=== PATIENT | female | born 1985 | race Caucasian/White ===

== ENCOUNTER 2019-08-28 08:49 | Emergency (ER) | payer OTHER, SELFPAY ==
[2019-08-28 08:57] VITALS: BP 128/84; PULSE 129; RESP 16; TEMP 36.9; O2SAT 100
--- NOTE | 2019-08-28 09:08 | ED.URI ---
HPI - URI/Sore Throat General Chief Complaint: Upper Respiratory Infection Stated Complaint: Sore throat History of Present Illness HPI Narrative: This is 33 year old that has had a sore throat for the past day and she denies taking anything for her symptoms Patient states that here son has strep and she is pretty sure she is positive . Related Data Home Medications Medication Instructions Recorded Confirmed PNV cmb#95-ferrous fumarate-FA 1 tablet PO DAILY 04/26/19 08/28/19 [] Allergies Allergy/AdvReac Type Severity Reaction Status Date / Time No Known Allergies Allergy Unknown Verified 08/28/19 09:11 Review of Systems Review of Systems: Narrative: CONSTITUTIONAL: Denies fever, chills, or sweats. EYES: Denies visual changes, redness, or discharge. ENT: Denies rhinorrhea, congestion,positive sore throat, or otalgia. CARDIOVASCULAR:Denies chest pain, palpitations, or edema. RESPIRATORY: Denies cough or dyspnea. GASTROINTESTINAL: Denies abdominal pain, nausea, vomiting, or diarrhea. GENITOURINARY: Denies dysuria or hematuria. SKIN:[Denies rash or itching. MUSCULOSKELETAL:Denies back pain, joint pain, or myalgia. NEUROLOGIC: Denies headache, numbness, or weakness. 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 Please see nursing chart for further information. There is no relevant family history pertinent to the presenting complaint. Exam Narrative: Exam Narrative: GENERAL:Well-appearing, well-nourished, and in no acute distress. HEAD:Normocephalic, atraumatic. EYES: PERRLA and EOMI. ENT: Nares clear, no rhinorrhea or epistaxis. Mucous membranes moist. Pharyngeal erythema NECK: Supple. CHEST: Clear to auscultation. No respiratory distress. HEART: Regular rate and rhythm. No murmur heard. Normal peripheral pulses. ABDOMEN: Soft, nontender, nondistended, normal active bowel sounds. EXTREMITIES: Normal range of motion. No edema. SKIN: Warm, dry, no rash. NEURO: No focal deficits. Alert and oriented x3. Positive strep Course Vital Signs Vital signs: Vital Signs Temperature 98.4 F 08/28/19 08:57 Pulse Rate 129 H 08/28/19 08:57 Respiratory Rate 16 08/28/19 08:57 Blood Pressure 128/84 08/28/19 08:57 Pulse Oximetry 100 08/28/19 08:57 Temperature 98.4 F 08/28/19 08:57 Pulse Rate 129 H 08/28/19 08:57 Respiratory Rate 16 08/28/19 08:57 Blood Pressure 128/84 08/28/19 08:57 Pulse Oximetry 100 08/28/19 08:57 MDM - URI/Sore Throat Lab Data Labs: Strep Screen Positive Group A Strep *(Reference Range: Negative)* Discharge Plan Discharge Clinical Impression: Strep throat Pharyngitis Qualifiers: Pharyngitis/tonsillitis etiology: unspecified etiology Qualified Code(s): J02.9 - Acute pharyngitis, unspecified Patient Disposition: Home, Self-Care Condition: Stable Instructions: Antibiotic Form, Pharyngitis (ED) Additional Instructions: Change your toothbrush in 2 days You should proceed with take your antibiotics as directed. Salt water gargles may alleviate some of your throat discomfort. Take Tylenol and/or ibuprofen per the package instructions for pain/fever. Go to the ER if your symptoms become worse of if ANY new symptoms develop No information on probiotics Prescriptions: New amoxicillin 500 mg capsule 500 mg PO Q12H 10 Days Qty: 20 RF: 0 No Action PNV cmb#95-ferrous fumarate-FA [] 28 mg iron- 800 mcg Tablet 1 tablet PO DAILY RF: 0 Follow-up/Referrals: PHYSICIAN,O
== END 2019-08-28 09:35 | disposition home or self-care (01) ==
PROVIDERS: Emergency Provider Nurse Practitioner Family
DX: J02.0 Streptococcal pharyngitis (principal); Z87.891 Personal history of nicotine dependence; M41.9 Scoliosis, unspecified
CPT/HCPCS: 87880; 99213; G0463

== ENCOUNTER 2020-12-19 14:50 | Observation (INO) | payer OTHER, SELFPAY ==
[2020-12-19 15:14] VITALS: BP 126/80; PULSE 100
[2020-12-19 15:30] VITALS: BP 111/76; PULSE 116
[2020-12-19 16:00] VITALS: BP 108/66; PULSE 100
--- NOTE | 2020-12-25 07:08 | PM.OBTRLD ---
OB - Triage/Final Diagnosis Visit Information Comments/Additional reasons for admission: I have assessed the risk for this patient, Brandy Pryor, and determined that she would benefit from observation care. Final Diagnosis (1) Placenta previa: Code(s): O44.00 - Complete placenta previa NOS or without hemorrhage, unspecified trimester Status: Acute (2) Spotting complicating , third trimester: Code(s): O26.853 - Spotting complicating , third trimester Status: Acute
== END 2020-12-19 16:25 | disposition home or self-care (01) ==
PROVIDERS: Admitting Provider Obstetrics & Gynecology; Visit Provider Obstetrics & Gynecology
DX: O44.03 Complete placenta previa NOS or without hemorrhage, third trimester (principal); O26.853 Spotting complicating pregnancy, third trimester; Z3A.32 32 weeks gestation of pregnancy
CPT/HCPCS: G0378; G0379

== ENCOUNTER 2020-12-20 19:18 | Observation (INO) | payer OTHER, SELFPAY ==
[2020-12-20 19:37] VITALS: BP 117/78; PULSE 94
[2020-12-20 19:45] VITALS: BP 115/70; PULSE 100
[2020-12-20 20:00] VITALS: BP 116/76; PULSE 103
[2020-12-20 20:16] VITALS: PULSE 87
[2020-12-20 20:29] VITALS: BMI 32.8
--- NOTE | 2020-12-20 20:29 | LDADM ---
This patient, Brandy Pryor, was admitted to OB Post 117 on 12/20/20 at 19:18. Plans for labor, pain management and were discussed with patient. Patient/family oriented to hospital policies and general routines including ID bracelet, bed and alarms, visiting hours, pain management, procedures, bathroom and other care routines, personal items, smoking policy, room service/diet and guest tray routines, security routines, and visiting hours. Patient/Family are encouraged to report perceived risks to care and to ask questions if they do not understand what they are told or what they should do. See OBIX for further documentation.
--- NOTE | 2020-12-20 22:12 | PC.NURSE ---
2015- Called Dr. Bangura- informed of pt admission. pt was here yesterday for spotting and discharged home. earlier today pt had a half dollar size mucous like discharge with a dark red/brown color. had 2 pencil eraser size light brown spots on pad. otherwise no other discharge noted. no jessica/cramping. FHT discussed. ok to d/c home with instructions to return to L&D if bright red bleeding. no intercourse or anything into the vagina.
--- NOTE | 2021-01-10 20:58 | PM.OBTRLD ---
OB - Triage/Final Diagnosis Visit Information Comments/Additional reasons for admission: I have assessed the risk for this patient, Brandy Pryor, and determined that she would benefit from observation care. Final Diagnosis (1) Placenta previa: Code(s): O44.00 - Complete placenta previa NOS or without hemorrhage, unspecified trimester Status: Acute
== END 2020-12-20 20:37 | disposition home or self-care (01) ==
PROVIDERS: Admitting Provider Obstetrics & Gynecology; Visit Provider Obstetrics & Gynecology
DX: O44.00 Complete placenta previa NOS or without hemorrhage, unspecified trimester (principal); Z3A.00 Weeks of gestation of pregnancy not specified
CPT/HCPCS: 59025; G0378; G0379

== ENCOUNTER 2021-01-04 09:32 | Observation (INO) | payer OTHER, SELFPAY ==
[2021-01-04] MEDS: BETAMETHASONE SOD PHOS/ACETATE 30 MG/5 ML VIAL 12 MG IM (11:21)
[2021-01-04 11:27] LABS: Hematocrit 33.5 % (37.0-47.0); Hemoglobin 11.1 g/dL (12.0-15.0); Mean Corpuscular HGB Conc 33.1 g/dl (32-36); Mean Corpuscular Hemoglobin 28.9 pg (26-34); Mean Corpuscular Volume 87.2 fl (80-100); Mean Platelet Volume 10.8 fl (7.4-10.4); Platelet Count Result 140 k/mm3 (150-375); Red Blood Count 3.84 M/mm3 (4.2-5.4); Red Cell Distribution Width 13.7 % (11.5-14.5); White Blood Count 11.9 K/mm3 (4.5-10.0)
--- NOTE | 2021-01-04 11:42 | OBADM ---
This patient, Brandy Pryor, admitted to the OB room OB Post 112 for observation. Patient/family oriented to hospital policies and general routines including ID bracelet, bed and alarms, visiting hours, pain management, procedures, bathroom and other care routines, personal items, smoking policy, room service/diet, and visiting hours. Patient/Family are encouraged to report perceived risks to care and to ask questions if they do not understand what they are told or what they should do.
--- NOTE | 2021-01-04 12:00 | PC.NURSE ---
0939- EFM and toco applied 1000- 140, moderate variability, accelerations present, no decels 1100- 140- moderate variability, accelerations present, no decels 1126- 140, moderate variability, accelerations present, no decels - EFM and toco removed for transfer to room 111
[2021-01-04] MEDS: POLYSACCHARIDE IRON COMPLEX 150 MG CAPSULE PO (12:23)
[2021-01-04 19:08] VITALS: BMI 34.0
[2021-01-04 19:17] VITALS: BP 119/71; PULSE 77; RESP 18; TEMP 36.6; O2SAT 100
[2021-01-04 23:53] VITALS: PULSE 99; O2SAT 97
[2021-01-04 23:54] VITALS: BP 114/65; PULSE 82; RESP 18; TEMP 36.8
[2021-01-05 07:10] VITALS: PULSE 104; O2SAT 98
[2021-01-05 07:11] VITALS: BP 108/68; PULSE 92; TEMP 36.7
[2021-01-05 10:08] VITALS: BP 115/72; PULSE 100
[2021-01-05] MEDS: BETAMETHASONE SOD PHOS/ACETATE 30 MG/5 ML VIAL 12 MG IM (11:28)
--- NOTE | 2021-01-06 06:45 | PM.OBPNLAB ---
Pain Control Date/time seen: 01/05/21 0530 VSS Rare contractions FHR category 1 Per nurse no bleeding. Just a scant amount of brown when wiping. Pt sleeping when I went in to see her. Did not wake her up. Plan continue to monitor, 2nd dose of celestone, consider discharge if she remains stable.
--- NOTE | 2021-01-31 08:24 | PM.OBTRLD ---
OB - Triage/Final Diagnosis Visit Information Comments/Additional reasons for admission: I have assessed the risk for this patient, Brandy Pryor, and determined that she would benefit from observation care. Evaluation Laboratory results: Laboratory Tests 01/04/21 01/04/21 11:08 11:08 WBC 11.9 H RBC 3.84 L Hgb 11.1 L Hct 33.5 L MCV 87.2 MCH 28.9 MCHC 33.1 RDW 13.7 Plt Count 140 L MPV 10.8 H Blood Type O Positive Antibody Screen Negative Final Diagnosis (1) Spotting complicating , third trimester: Code(s): O26.853 - Spotting complicating , third trimester Status: Acute
== END 2021-01-05 11:40 | disposition home or self-care (01) ==
PROVIDERS: Admitting Provider Obstetrics & Gynecology; Visit Provider Obstetrics & Gynecology
DX: O26.853 Spotting complicating pregnancy, third trimester (principal); Z3A.00 Weeks of gestation of pregnancy not specified
CPT/HCPCS: 36415; 85027; 86850; 86900; 86901; 96372; A9270; G0378; G0379; J0702

== ENCOUNTER 2021-01-25 05:15 | Inpatient (IN) | payer OTHER, SELFPAY ==
--- NOTE | 2021-01-07 16:09 | PC.NURSE ---
PATIENT INSTRUCTED TO BE OB 2 HOURS BEFORE SURGERY TIME AND NOTHING BY MOUTH THE NIGHT BEFORE SURGERY THE NIGHT BEFORE SURGERY PATIENT INSTRUCTED TO HAVE PRE-OP LABS DRAWN THE DAY BEFORE SURGERY
[2021-01-25] VITALS (51 sets, daily range): BP systolic 83–155; BP diastolic 35–103; PULSE 58–128; RESP 13–18; TEMP 36.4–37.2; O2SAT 97–100; BMI 33.2
--- OUTSIDE RECORDS SUMMARY | 2021-01-25 05:21 | XMS_ITS | Encounter Summary ---
:1985 Author Reason for Visit OB visit Assessment and Plan 1. Placenta previa 2. Large for gestation age fetus Discussion Note: None recorded.Patient educational handouts: No information available. Plan of Care Reminders Provider Appointments Surg Post 02/01/2021 Maxine Fields here Op 11:45AM MD Rah Lab None ? ? recorded. Referral None ? ? recorded. Procedures None ? ? recorded. Surgeries None ? ? recorded. Imaging None ? ? recorded. Medications Name Start Date ? ? 28 mg iron-800 mcg tablet ? Medications Administered None recorded. Vitals Height Weight BMI Blood Pressure 5 ft 8 in 218 lbs 33.1 kg/m2 113/78 mm[Hg] Results Lab Results None recorded. Allergies Code Code System Name Reaction Severity Onset NKDA ? ? ? Problems Name Status Onset Date Source ? Active 07/31/2020 ? Placenta Previa Active 10/02/2020 ? Large for Gestation Age Fetus Active 12/25/2020 ? Procedures Date Name Performed by ? 04/18/2013 Lumbar Spine Fusion Infor
--- OUTSIDE RECORDS SUMMARY | 2021-01-25 05:21 | XMS_ITS | Encounter Summary ---
:1985 Author Reason for Visit OB visit Assessment and Plan 1. Routine care ? drug screen, urine 2. Placenta previa Discussion Note: None recorded.Patient educational handouts: No information available. Plan of Care Reminders Provider Appointments Surg Post 02/01/2021 Maxine T herese Op 11:45AM MD [facility] Lab Drug 12/11/2020 [place] Screen, Urine Referral None ? ? recorded. Procedures None ? ? recorded. Surgeries None ? ? recorded. Imaging None ? ? recorded. Medications Name Start Date ? ? 28 mg iron-800 mcg tablet ? Medications Administered None recorded. Vitals Height Weight BMI Blood Pressure 5 ft 8 in 216 lbs 32.8 kg/m2 116/76 mm[Hg] Results Lab Results Date Name Specimen Result Interpretation Description Value Range Status Address ? 12/11/2020 Drug Urine ? Amphetamines: negative ? ? [place]: Screen, [address] [place] , [place] ? ? Urine ? Cannabinoids: negative ? ? [place]: 2015
--- OUTSIDE RECORDS SUMMARY | 2021-01-25 05:21 | XMS_ITS | Encounter Summary ---
:1985 Author Reason for Visit OB visit Assessment and Plan 1. Placenta previa 2. section following pr evious section ? section (SURG) Discussion Note: None recorded.Patient educational handouts: No information available. Plan of Care Reminders Provider Appointments Surg Post Op Am y Lisa 02/01/2021 MD Rah 11:45AM Lab None ? ? recorded. Referral None ? ? recorded. Procedures None ? ? recorded. Surgeries [facility] Surgery Section (SURG) 11/27/2020 [facility] Imaging None ? ? recorded. Medications Name Start Date ? ? 28 mg iron-800 mcg tablet ? Medications Administered None recorded. Vitals Height Weight BMI Blood Pressure 5 ft 8 in 214 lbs 32.5 kg/m2 119/81 mm[Hg] Results Lab Results None recorded. Allergies Code Code System Name Reaction Severity Onset NKDA ? ? ? Problems Name Status Onset Date Source ? Active 07/31/2020 ? Placenta Previa Active 10/02/2020 ? Large for Gestation Age Fetus Active
--- OUTSIDE RECORDS SUMMARY | 2021-01-25 05:21 | XMS_ITS | Encounter Summary ---
:1985 Author Reason for Visit None recorded. Assessment and Plan None recorded.Discussion Note: None recorded.Patient educational handouts: No information available. Plan of Care Reminders Provider Appointments Surg Post 02/01/2021 Maxine faust Op 11:45AM MD Rah Lab None ? ? recorded. Referral None ? ? recorded. Procedures None ? ? recorded. Surgeries None ? ? recorded. Imaging None ? ? recorded. Medications Name Start Date ? ? 28 mg iron-800 mcg tablet ? Medications Administered None recorded. Vitals None recorded. Results Lab Results None recorded. Allergies Code Code System Name Reaction Severity Onset NKDA ? ? ? Problems Name Status Onset Date Source ? Active 07/31/2020 ? Placenta Previa Active 10/02/2020 ? Large for Gestation Age Fetus Active 12/25/2020 ? Procedures Date Name Performed by ? 04/18/2013 Lumbar Spine Fusion Information not avai lable Notes: L4-S1 ? Lumbar Spine Fusion Information not avai lable 10/30/2020 , Obstetric, Follow-up [place]
--- OUTSIDE RECORDS SUMMARY | 2021-01-25 05:21 | XMS_ITS | Encounter Summary ---
:1985 Author Reason for Visit None recorded. Assessment and Plan 1. screening ? US, obstetric, follow-up Discussion Note: None recorded.Patient educational handouts: No information available. Plan of Care Reminders Provider Appointments Surg Post 02/01/2021 Maxine Monreal, Op 11:45AM Lab None ? ? recorded. Referral None ? ? recorded. Procedures None ? ? recorded. Surgeries None ? ? recorded. Imaging US, 10/30/2020 [place] Obstetric, Follow-up Medications Name Start Date ? ? 28 [...] ? 04/18/2013 Lumbar Spine Fusion Information not venu cabrera Notes: Erik
--- OUTSIDE RECORDS SUMMARY | 2021-01-25 05:21 | XMS_ITS | Encounter Summary ---
:1985 Author Reason for Visit OB visit Assessment and Plan 1. Placenta previa 2. Routine care Discussion Note: None recorded.Patient educational handouts: No [...] BMI Blood Pressure 5 ft 8 in 212 lbs 32.2 kg/m2 125/78 mm[Hg] Results Lab Results None recorded. Allergies Code Code System Name Reaction Severity Onset NKDA ? ? ? Problems Name Status Onset Date Source ? Active 07/31/2020 ? Placenta Previa Active 10/02/2020 ? Large for Gestation Age Fetus Active 12/25/2020 ? Procedures Date Name Performed by ? 04/18/2013 Lumbar Spine Fusion Information
--- OUTSIDE RECORDS SUMMARY | 2021-01-25 05:21 | XMS_ITS ---
:1985 Author Care Team Providers Name Role Phone Lisa Monreal Primary Care Provider Unavailable Allergies Code Code System Name Reaction Severity Status Onset NKDA ? Medications Name Status Start Date Stop Date ? ? amoxicillin 500 mg capsule Completed ? 10/03 azithromycin 250 mg tablet Completed ? 12/11 Mckenna 0.35 mg tablet Completed 09/05/2019 07/04/2020 TAKE 1 TABLET BY MOUTH EVERY DAY clomiphene citrate 50 mg tablet Completed 06/28/2018 09/07/2018 take 1 tablet by oral route days 5-9 of cycle Diflucan 150 mg tablet Completed 01/11/2018 8 take 1 tablet by oral route once Fora [id number] strips-lancets 30 gauge combo pack Complete d 02/10/2019 05/25/2019 checking BS QID fasting and 1hr pp FreeStyle Lancets 28 gauge Completed ? 10/03 ondansetron 4 mg disintegrating Completed ? 12/11/2020 tablet Completed ? 07/04/2020 28 mg iron-800 mcg Active ? Not available tablet Vienva 0.1 mg-20 mcg tablet Completed ? 06/16 Vitamin B12 Completed ? 08/28/2020 Problems Name Status Onset Date Source ? Body Mass Index 25-29 - Overweight Unknown 01/05/2018 History Screening for Malignant Neoplasm of Unknown 01/05/[address] Concept Unknown 01/05/2018 History Female Infertility Associated with Unknown 05/19/2018 History Anovulation
--- OUTSIDE RECORDS SUMMARY | 2021-01-25 05:21 | XMS_ITS | Encounter Summary ---
:1985 Author Reason for Visit None recorded. Assessment and Plan 1. Placenta previa without hemor rhage ? US, obstetric, follow-up Discussion Note: None recorded.Patient educational handouts: No information available. Plan of Care Reminders Provider Appointments Surg Post 02/01/2021 Maxine Monreal, Op 11:45AM Lab None ? ? recorded. Referral None ? ? recorded. Procedures None ? ? recorded. Surgeries None ? ? recorded. Imaging US, 12/25/2020 [place] [facility]etric, Follow-up Medications Name Start Date ? [...]
--- OUTSIDE RECORDS SUMMARY | 2021-01-25 05:21 | XMS_ITS | Encounter Summary ---
:1985 Author Reason for Visit None recorded. Assessment and Plan 1. Placenta previa 2. [...] BMI Blood Pressure 5 ft 8 in 224 lbs 34.1 kg/m2 113/73 mm[Hg] Results Lab Results None recorded. Allergies Code Code System Name Reaction Severity Onset NKDA ? ? ? Problems Name Status Onset Date Source ? Active 07/31/2020 ? Placenta Previa Active 10/02/2020 ? Large for Gestation Age Fetus Active 12/25/2020 ? Procedures Date Name Performed by ? 04/18/2013 Lumbar Spine Fusion
--- OUTSIDE RECORDS SUMMARY | 2021-01-25 05:21 | XMS_ITS | Encounter Summary ---
:1985 Author Reason for Visit None recorded. Assessment and Plan 1. Placenta previa ? US, obstetric, follow-up Discussion Note: None recorded.Patient educational handouts: No information available. Plan of Care Reminders Provider Appointments Surg Post 02/01/2021 Maxine Monreal, Op 11:45AM Lab None ? ? recorded. Referral None ? ? recorded. Procedures None ? ? recorded. Surgeries None ? ? recorded. Imaging US, 11/27/2020 [place] [facility], Follow-up Medications Name Start Date ? [...] Spine Fusion Information not venu cabrera Notes: L4-S1
--- OUTSIDE RECORDS SUMMARY | 2021-01-25 05:21 | XMS_ITS | Encounter Summary ---
:1985 Author Reason for Visit OB problem pt here f/u l&D Assessment and Plan None recorded.Discussion Note: None recorded.Patient educational handouts: No information available. Plan of Care Reminders Provider Appointments Surg Post 02/01/2021 Maxine Fields herese Op 11:45AM MD Rah Lab None ? ? recorded. Referral None ? ? recorded. Procedures None ? ? recorded. Surgeries None ? ? recorded. Imaging None ? ? recorded. Medications Name Start Date ? ? 28 mg iron-800 mcg tablet ? Medications Administered None recorded. Vitals Height Weight BMI Blood Pressure 5 ft 8 in 219 lbs 33.3 kg/m2 115/80 mm[Hg] Results Lab Results None recorded. Allergies [...]
[2021-01-25 06:05] LABS: Basophils Percent Auto 0.3 % (0.2-1.2); Eosinophils Absolute Auto 0.1 K/mm3 (0-0.3); Eosinophils Percent Auto 0.6 % (0-4.4); Hematocrit 36.6 % (37.0-47.0); Hemoglobin 12.1 g/dL (12.0-15.0); Immature Granulocyte Absolute 0.24 K/mm3 (0.00-0.031); Lymphocytes Absolute Auto 2.86 K/mm3 (0.9-3.2); Lymphocytes Percent Auto 24.1 % (18.3-44.2); Mean Corpuscular HGB Conc 33.1 g/dl (32-36); Mean Corpuscular Hemoglobin 28.8 pg (26-34); Mean Corpuscular Volume 87.1 fl (80-100); Mean Platelet Volume 10.7 fl (7.4-10.4); Monocytes Absolute Auto 0.7 K/mm3 (0.1-0.6); Monocytes Percent Auto 6.1 % (2.6-8.5); Neutrophils Absolute Auto 7.9 K/mm3 (1.3-6.7); Neutrophils Percent Auto 66.9 % (45.5-73.1); Platelet Count Result 164 k/mm3 (150-375); Red Cell Distribution Width 14.6 % (11.5-14.5); White Blood Count 11.9 K/mm3 (4.5-10.0)
[2021-01-25] MEDS: LACTATED RINGERS 1,000 ML 999 ML IV CONT ×2 (06:28→07:31)
--- NOTE | 2021-01-25 06:45 | LDADM ---
This patient, Brandy Pryor, was admitted to Labor/Delivery/Recovery 120 on 01/25/21 at 05:15. Plans for section, pain management and were discussed with patient. Patient/family oriented to hospital policies and general routines including ID bracelet, bed and alarms, visiting hours, pain management, procedures, bathroom and other care routines, personal items, smoking policy, room service/diet and guest tray routines, security routines, and visiting hours. Patient/Family are encouraged to report perceived risks to care and to ask questions if they do not understand what they are told or what they should do. See OBIX for further documentation.
--- NOTE | 2021-01-25 06:49 | WPDANESEPPF ---
Anes - Initial Pre Proc Eval Procedure: Operation Date: 01/25/21 07:30 Proposed Procedures p Repeat Section - Maxine Monreal MD Date/Time: 01/25/21 06:49 Surgeon: Maxine Monreal MD Pre Op Diagnosis: C SECTION Patient Data Age: 35 Gender: F Height: 1.73 m Weight: 99.1 kg Last Vital Signs Pulse 97 01/25/21 05:48 BP 120/79 01/25/21 05:48 Allergies Allergy/AdvReac Type Severity Reaction Status Date / Time No Known Allergies Allergy Unknown Verified 01/07/21 15:43 Home Medications Medication Instructions Recorded Confirmed Type PNV cmb#95-ferrous fumarate-FA 1 tablet PO DAILY 04/26/19 01/25/21 History [] ferrous sulfate 140 mg PO DAILY 01/07/21 01/07/21 History Laboratory Tests 01/25/21 01/25/21 05:47 05:47 WBC 11.9 K/mm3 H K/mm3 (4.5-10.0) RBC 4.20 M/mm3 M/mm3 (4.2-5.4) Hgb 12.1 g/dL g/dL (12.0-15.0) Hct 36.6 % L % (37.0-47.0) MCV 87.1 fl fl (80-100) MCH 28.8 pg pg (26-34) MCHC 33.1 g/dl g/dl (32-36) RDW 14.6 % H % (11.5-14.5) Plt Count 164 k/mm3 k/mm3 (150-375) MPV 10.7 fl H fl (7.4-10.4) Immature Gran % (Auto) 2.0 % H % (0-0.5) Neut % (Auto) 66.9 % % (45.5-73.1) Lymph % (Auto) 24.1 % % (18.3-44.2) [place] % (Auto) 6.1 % % (2.6-8.5) Eos % (Auto) 0.6 % % (0-4.4) Baso % (Auto) 0.3 % % (0.2-1.2) Lymph # (Auto) 2.86 K/mm3 K/mm3 (0.9-3.2) [place] # (Auto) 0.7 K/mm3 H K/mm3 (0.1-0.6) Eos # (Auto) 0.1 K/mm3 K/mm3 (0-0.3) Baso # (Auto) 0.0 K/mm3 K/mm3 (0.0-0.1) Abs Immat Gran (auto) 0.24 K/mm3 H K/mm3 (0.00-0.031) Absolute Neuts (auto) 7.9 K/mm3 H K/mm3 (1.3-6.7) Absolute Nucleated RBC 0.0 K/mm3 K/mm3 (0.0-0.012) Nucleated RBC % 0.0 % % (0.0-0.2) RPR Pending Patient hx anesthesia problems: none Family hx anesthesia problems: none [facility] Past Medical History Medical History 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 Family History Family History Grandparent Heart disease Heart attack Social History Social History Smoking status: Former smoker Substance use: never Last use: CLEAN FOR 6 YEARS Gender identity (if verbalized by the patient): Female Spiritual care concerns: No Anes - Eval Final PreProcedure Day of Procedure 01/25/21 06:49 Patient weight: overweight Heart: regular rate and rhythm Lungs: clear to auscultation Airway: Mallampati scale class II Neurological: alert and oriented Last oral intake: >/= 8 hours ASA classification: III Emergent: no Anesthetic plan: proceed Anesthesia type and monitoring: regional spinal and standard monitoring Informed Consent: The patient's anesthetic plan of spinal with GA ETT as back-up and its attendant risks and benefits were discussed with the patient/family/POA. Questions were solicited and answers provided to the satisfaction of the patient/family/POA.
--- NOTE | 2021-01-25 07:26 | PM.IMHP ---
H&P: HPI History of Present Illness Date/Time: 01/25/21 07:26 Chief Complaint: placenta previa at 37.3 Narrative: Brandy is a at 37.3 with complete posterior placenta previa. Baby is LGA> also complicated by COVID pos, sx started 10-11 days ago, mild. She also has ahistory of opioid addiction several years ago, clean now for years. Also history lumbar fusion. Has had a couple episodes of mild bleeding, one overnight observation, but no major bleeding withthe previa. 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 Family History Family History Grandparent Heart disease Heart attack Social History Social History Smoking status: Former smoker Smoking end date: 06/15/14 Substance use: never Last use: CLEAN FOR 6 YEARS Gender identity (if verbalized by the patient): Female Spiritual care concerns: No Meds Home Medications and Allergies Home Medications Medication Instructions Recorded Confirmed Type PNV cmb#95-ferrous fumarate-FA 1 tablet PO DAILY 04/26/19 01/25/21 History [] ferrous sulfate 140 mg PO DAILY 01/07/21 01/07/21 History Allergies Allergy/AdvReac Type Severity Reaction Status Date / Time No Known Allergies Allergy Unknown Verified 01/07/21 15:43 Vital Signs Vital Signs - 24 hr 01/25/21 05:48 Pulse Rate 97 Blood Pressure 120/79 Exam Const: General: no acute distress Resp: Effort & Inspection: normal respiratory effort Auscultation: clear to auscultation bilaterally Cardio: Rate: regular rate Rhythm: regular rhythm GI: GI Palp: Yes Soft to palpation Extrem: General: normal to inspection H&P: Results Labs Labs: Short CBC 01/25/21 Range/Units 05:47 WBC 11.9 H (4.5-10.0) K/mm3 Hgb 12.1 (12.0-15.0) g/dL Hct 36.6 L (37.0-47.0) % Plt Count 164 (150-375) k/mm3 Assessment and Plan Additional Plan Plan primary CS for placenta previa, posterior. Discussed RBA, pt consented, all questions answered. Minimal narcotics post op per pt preference, will schedule motrin. She plans to have her mom dispense them to her at home. Anesthesia aware of lumbar fusion. will proceed.
--- NOTE | 2021-01-25 07:30 | WPDHPUPDATE1 ---
History and Physical Update Update Date/Time: 01/25/21 07:30 History and Physical has been reviewed, including an updated exam of the patient. There are NO changes in the patient's condition. Risks, benefits, and alternatives have been discussed and questions answered. Patient agrees to proceed with procedure.
[2021-01-25] MEDS: KETOROLAC 30 MG/ML VIAL (*BKC) IV PUSH ×3 (08:20→21:19)
--- NOTE | 2021-01-25 08:38 | PM.OBPRVD ---
OB - Delivery Note Procedure Delivery date: 01/25/21 Procedure: Procedures Operation Date: 01/25/21 07:30 <No data on this case meets the specified criteria> Primary section Route of delivery: Specimen: Yes (placenta) Quantitative Blood Loss (ml): 705 Anesthesia type: Spinal Disposition: floor Complications: none Narrative: The patient was taken to the OR and received spinal anesthesia. She was placed in dorsal supine position with left lateral tilt. SCDs and swain were placed. She was prepped and draped in the normal sterile fashion. A Pfannensteil skin incision was made and carried through to the underlying layer of fascia. The fascia was incised in the midline and then extended laterally using Conrad scissors. The muscles were in the midline and the peritoneum was entered bluntly. The peritoneal incision was extended inferiorly and superiorly with care to avoid the bladder. The bladder blade was then inserted, the vesicouterine peritoneum was grasped, incised with Metzenbaum scissors, and a bladder flap created. The bladder blade was reinserted. A low transverse uterine incision was made with a scalpel and extended bluntly. AROM was performed and fluid was noted to be clear. The head was delivered, followed by the remainder of the baby. The baby's oropharynx was suctioned. After 30 seconds, the cord was clamped and cut and the was handed off. Cord blood was obtained and the placenta was then removed manually. The uterus was exteriorized. A moist lap sponge was used to curette the endometrium. The uterine incision was then closed with one layer of 0-Vicryl in a running, locking fashion. Good hemostasis was noted. The posterior cul de sac was irrigated with normal saline and cleared of all clot and debris. The uterus was returned to the abdomen. Both lateral gutters were then irrigated. The rectus muscles were inspected and found to be hemostatic. The fascia was reapproximated using 0-Vicryl in running fashion. The subcutaneous tissue was irrigated with normal saline and made hemostatic with Bovie electrocautery. The subcutaneous tissue was reapproximated with a layer of running 2-0 plain gut. The skin was then closed with absorbable luanne. Steri strips and a bandage were applied. The uterus was evacuated. The patient tolerated the procedure very well. All counts were correct. She was taken to the recovery room in good condition. Baby Date of : 01/25/21 Time of : 08:07 Weeks of gestation at delivery: 37 Infant gender: Male Weight (pounds): 8 Weight (ounces): 11 presentation: vertex Placenta delivery description: Manual Removal cord vessel description: 3 Vessels score one minute: 8 score five minutes: 9
[2021-01-25] MEDS: OXYTOCIN 30 UNITS/NS 500 ML 30 UNITS/500 ML BAG 125 UNITS IV CONT (09:59)
--- NOTE | 2021-01-25 11:05 | OBPPTRN ---
Patient transferred to post room # 288 via stretcher and transferred to bed via maxi air with out difficulty. Support person present and infant in open crib. Oriented to unit, room, information board, rooming in, admission packet and security measures via one to one discussion, mom baby care guide book and demonstration this shift. No barriers to learning identified. PT and significant other both recipients of such instructions. Patient verbalizes understanding.
--- NOTE | 2021-01-25 12:45 | PC.NURSE ---
Mother called out for assist with feeding. Mother reports infant eagerly fed for first feeding. is able to freely thrust tongue past gum ridge and flange both lips. Skin is intact on both nipples, no redness and bruising noted. Reviewed infant feeding cues, frequencies, duration of feedings, feeding elimination flow sheet, and signs of adequate intake. Demonstrated stimulation techniques to wake for feeding. Assisted with to breast. Reviewed positioning/alignment in cross cradle, holding breast in ?U? hold and guided asymmetrical latch on. Discussed rational for each. Infant able to latch correctly. Reviewed signs of a correct latch, effective nursing and suck swallow ratio. Infant nursed eagerly, with steady draws and frequent swallowing noted. Reviewed the difference of effective vs ineffective nursing. Suggested mother stimulate while feeding to increase stimulation, increase intake and to assist with maintaining deep latch. Infant would slip to shallow latch, mother reports tenderness. Demonstrated how to adjust latch more deeply while feeding. Mother reports she can feel change in latch and has no tenderness. Nipple care reviewed of lanolin after feedings, warm compresses as needed.
[2021-01-25 13:14] LABS: Rapid Plasma Reagin Non-Reactive (NonReactive)
[2021-01-25] MEDS: ACETAMINOPHEN 325 MG TABLET 650 MG PO (13:54)
[2021-01-25] MEDS: DEXTROSE 5%/0.45% SOD CHL 1,000 ML 125 ML IV CONT (13:55)
[2021-01-25] MEDS: LANOLIN (LANSINOH) 7.5 GM CREAM 1 APPLIC TOPICAL (14:03)
[2021-01-25] MEDS: SIMETHICONE 80 MG TAB.CHEW PO ×3 (17:53→23:30)
[2021-01-25] MEDS: DOCUSATE SODIUM 100 MG CAPSULE PO (17:53)
[2021-01-25] MEDS: HYDROcodone/acetaminophen (*CRX) 5-325 MG TABLET 1 TAB PO ×2 (17:55→19:23)
[2021-01-25] MEDS: HYDROcodone/acetaminophen (*CRX) 10-325 MG TABLET 1 TAB PO (21:18)
[2021-01-26] MEDS: HYDROcodone/acetaminophen (*CRX) 5-325 MG TABLET 1 TAB PO ×7 (00:39→23:38)
[2021-01-26] MEDS: DOCUSATE SODIUM 100 MG CAPSULE PO ×2 (04:14→17:17)
[2021-01-26] MEDS: SIMETHICONE 80 MG TAB.CHEW PO ×6 (04:14→23:39)
[2021-01-26] MEDS: IBUPROFEN 600 MG TABLET PO ×3 (04:15→19:50)
[2021-01-26 04:26] VITALS: BP 113/71; PULSE 74; RESP 16; TEMP 36.9
[2021-01-26 05:52] LABS: Basophils Percent Auto 0.2 % (0.2-1.2); Eosinophils Percent Auto 0.4 % (0-4.4); Hematocrit 29.4 % (37.0-47.0); Hemoglobin 9.4 g/dL (12.0-15.0); Immature Granulocyte Absolute 0.13 K/mm3 (0.00-0.031); Immature Granulocyte Percent A 1.4 % (0-0.5); Lymphocytes Absolute Auto 1.89 K/mm3 (0.9-3.2); Lymphocytes Percent Auto 19.7 % (18.3-44.2); Mean Corpuscular Hemoglobin 28.8 pg (26-34); Mean Corpuscular Volume 90.2 fl (80-100); Mean Platelet Volume 11.1 fl (7.4-10.4); Monocytes Absolute Auto 0.7 K/mm3 (0.1-0.6); Monocytes Percent Auto 7.6 % (2.6-8.5); Neutrophils Absolute Auto 6.8 K/mm3 (1.3-6.7); Neutrophils Percent Auto 70.7 % (45.5-73.1); Platelet Count Result 133 k/mm3 (150-375); Red Blood Count 3.26 M/mm3 (4.2-5.4); Red Cell Distribution Width 14.5 % (11.5-14.5); White Blood Count 9.6 K/mm3 (4.5-10.0)
[2021-01-26 07:15] VITALS: BP 113/74; PULSE 72; RESP 16; TEMP 36.6; O2SAT 97
--- NOTE | 2021-01-26 07:49 | WPDANLDNPN2 ---
Anes-Prog Note L&D-Neuraxial Date/Time: 01/26/21 07:49 Neuraxial medications: intrathecal PF morphine Opiod-related complaints: none Patient feedback: Patient satisfied with post-operative pain management.
--- NOTE | 2021-01-26 07:50 | WPDANLDPN2 ---
Anes-Prog Note L&D Date/Time: 01/26/21 07:50 Comfortable throughout: section Neuraxial method: spinal Epidural/Spinal procedure site: clean & non-tender Neuro status: Neuro function grossly intact. Cardiovascular status: normal Respiratory status: normal Airway patency: baseline Mental status: baseline Post-Op hydration status: normal Vital Signs: Last Vital Signs Temp 36.9 C 01/26/21 04:26 Pulse 74 01/26/21 04:26 Resp 16 01/26/21 04:26 BP 113/71 01/26/21 04:26 Pulse Ox 97 01/25/21 16:00 Pain score (VAS): 0 I/O: Intake & Output 01/25/21 01/25/21 01/26/21 15:59 23:59 07:59 Intake Total 1180 1080 2000 Output Total 6719 370 7095 Balance 72 280 -325 Post-procedural complaints: none Patient feedback: Patient satisfied with anesthetic care.
[2021-01-26] MEDS: POLYSACCHARIDE IRON COMPLEX 150 MG CAPSULE PO ×2 (08:37→17:17)
[2021-01-26] MEDS: MULTIVIT/MIN/PREN/FOL AC/IRON TABLET 1 TAB PO (08:37)
[2021-01-26 08:45] VITALS: PULSE 72; RESP 16; O2SAT 97
--- NOTE | 2021-01-26 09:16 | P.PNOB_ITS ---
OB - PN: Subj Subjective Date/time seen: 01/26/21 09:16 Patient comments: incisional pain [place] baby status: doing well and nursing well [place] feeding status: exclusively breast feeding Narrative: E/A/V, swain out. Tried to get by without narcotics, but was in bad pain last night, much better now on norco. OB - PN: Obj Data Labs CBC & Chem 7: 01/26/21 04:19 Labs: Laboratory Results - last 24 hr 01/25/21 01/26/21 05:47 04:19 WBC 9.6 RBC 3.26 L Hgb 9.4 L Hct 29.4 L MCV 90.2 MCH 28.8 MCHC 32.0 RDW 14.5 Plt Count 133 L MPV 11.1 H Immature Gran % (Auto) 1.4 H Neut % (Auto) 70.7 Lymph % (Auto) 19.7 Waller % (Auto) 7.6 Eos % (Auto) 0.4 Baso % (Auto) 0.2 Lymph # (Auto) 1.89 Waller # (Auto) 0.7 H Eos # (Auto) 0.0 Baso # (Auto) 0.0 Abs Immat Gran (auto) 0.13 H Absolute Neuts (auto) 6.8 H Absolute Nucleated RBC 0.0 Nucleated RBC % 0.0 RPR Non-reactive OB - PN A/P Plan day: 1 Plan: routine care Time Spent With Patient Time: Total time spent is greater than 50% in coordination of care (as documented) at patient's floor/unit and/or counseling patient: Exam Narrative: NAD abdomen soft, appropriately tender, incision bandaged Extremities nontender with 1+ edema
[2021-01-26 20:00] VITALS: BP 117/80; PULSE 73; RESP 16; TEMP 36.8
[2021-01-27] MEDS: SIMETHICONE 80 MG TAB.CHEW PO ×4 (02:37→16:01)
[2021-01-27] MEDS: IBUPROFEN 600 MG TABLET PO ×4 (02:37→22:04)
[2021-01-27] MEDS: HYDROcodone/acetaminophen (*CRX) 5-325 MG TABLET 1 TAB PO ×7 (02:37→22:04)
--- NOTE | 2021-01-27 08:46 | PM.OBPNVD ---
OB - PN: Subj Subjective Date/time seen: 01/27/21 08:46 Patient comments: pain well controlled [place] baby status: doing well and nursing well [place] feeding status: exclusively breast feeding Narrative: baby with elevated bili so will stay tomorrow. OB - PN: Obj Data Labs CBC & Chem 7: 01/26/21 04:19 OB - PN A/P Plan day: 2 Plan: routine care Time Spent With Patient Time: Total time spent is greater than 50% in coordination of care (as documented) at patient's floor/unit and/or counseling patient: Exam Narrative: NAD abdomen soft, appropriately tender, incision CDI Extremities nontender with 1+ edema
[2021-01-27 09:00] VITALS: PULSE 77; RESP 16; O2SAT 98
[2021-01-27] MEDS: DOCUSATE SODIUM 100 MG CAPSULE PO ×2 (09:05→16:02)
[2021-01-27] MEDS: MULTIVIT/MIN/PREN/FOL AC/IRON TABLET 1 TAB PO (09:05)
[2021-01-27] MEDS: POLYSACCHARIDE IRON COMPLEX 150 MG CAPSULE PO ×2 (09:05→16:02)
[2021-01-27 11:44] VITALS: BP 107/71; PULSE 77; RESP 16; TEMP 36.2; O2SAT 98
[2021-01-27 19:30] VITALS: BP 128/83; PULSE 69; RESP 16; TEMP 36.6; O2SAT 100
[2021-01-28] MEDS: HYDROcodone/acetaminophen (*CRX) 5-325 MG TABLET 1 TAB PO ×4 (01:10→10:16)
[2021-01-28] MEDS: SIMETHICONE 80 MG TAB.CHEW PO ×2 (01:12→07:45)
[2021-01-28] MEDS: IBUPROFEN 600 MG TABLET PO ×2 (04:06→10:16)
[2021-01-28] MEDS: MULTIVIT/MIN/PREN/FOL AC/IRON TABLET 1 TAB PO (07:44)
[2021-01-28 07:45] VITALS: BP 106/72; PULSE 65; RESP 16; TEMP 36.3; O2SAT 100
[2021-01-28] MEDS: POLYSACCHARIDE IRON COMPLEX 150 MG CAPSULE PO (07:45)
[2021-01-28] MEDS: DOCUSATE SODIUM 100 MG CAPSULE PO (07:45)
--- NOTE | 2021-01-28 07:50 | PM.OBPNVD ---
OB - PN: Subj Subjective Date/time seen: 01/28/21 07:50 Patient comments: no complaints, pain well controlled, tolerating diet and flatus present baby status: doing well OB - PN: Obj Data Labs CBC & Chem 7: 01/26/21 04:19 OB - PN A/P Plan day: 3 Plan: routine care and discharge home (Follow up in 1 week) Time Spent With Patient Time: Total time spent is greater than 50% in coordination of care (as documented) at patient's floor/unit and/or counseling patient: Time with patient: less than 15 minutes Review of Systems Review of Systems: All systems reviewed & are unremarkable except as noted in HPI and below Exam Narrative: Fundus firm. Vaginal flow controlled. Incision dry and intact. Negative homans. No redness, warmth, or pain of lower ext. Const: General: comfortable Chest: Breast/axilla inspection: normal inspection of the breasts Resp: Effort & Inspection: normal respiratory effort Auscultation: clear to auscultation bilaterally Cardio: Rate: regular rate GI: GI Palp: Yes Soft to palpation Psych: Appearance: grossly normal Affect: normal affect Attitude: cooperative Thought content: Yes Normal thought content present Judgement: Good judgement present (Psych)
--- NOTE | 2021-01-28 09:39 | PC.NURSE ---
Consult with pt., mother reports infant will latch and nurse for short periods then fall asleep while at breast, causing nipple discomfort. Mother is supplementing after all feedings by choice. has increased jaundice and at 9% weight loss, ICP has suggested supplementation until mother's milk is in. Assured mother sleepiness for the first few days is normal and waking infant each feeding and keeping infant awake is needed to increase intake. Mother has scabbing to both nipples from shallow latch. Reviewed infant feeding cues, frequencies, duration of feedings, feeding elimination flow sheet, and signs of adequate intake. Demonstrated stimulation techniques to wake infant for feeding. Assisted with infant to breast. Reviewed positioning/alignment in football, holding breast in C hold and guided asymmetrical latch on. Infant was able to latch correctly. Infant nursed eagerly with bursts of steady draws and occasional swallowing followed with long pausing and falling to sleep. Advised to stimulate while feeding to keep awake, for increased intake, stimulation of supply and assist with maintaining deep latch. Discussed the difference of effective vs ineffective nursing. Advised this feeding observed is not awake and nursing effectively with minimal transfer of milk. Mother feels this latch was deep, she struggles with deep latch at times, and has difficulties maintaining deep latch due to sleepiness. Reviewed signs of a correct latch, effective nursing and suck swallow ratio. Infant was would slip to shallow latch, demonstrated how to adjust latch more deeply while feeding. Mother was able to adjust latch reporting less tenderness. Mother will continue to supplement as much as desires, and pump for 5-10 minutes after each feeding/attempt. Discussed infant may want to increase supplementation to satisfy, advised to increase as infant desires. Mother will pump on infant feeding schedule, increasing session to 20 minutes if pumping every 4 hours. Reviewed when is feeding effectively he may want to decrease supplementation. Advised not to discontinue supplement until a feeding pre/post evaluation is done by follow up, ICP or LC. Mother states she may use the nipple shield, as she did with first child, if continues to cause discomfort. Discussed nipple shield precautions and possible complications. Instructions given on application and cleaning of shield. Patient verbalizes understanding. Mother is able to independently latch infant with appropriate positioning/alignment. She is feeding as required and waking to feed if needed. Mother states she feels confident to continue current feeding plan of supplementation after breastfeedings at home. Reviewed transition to breast milk, signs of adequate intake, and engorgement/relief. Instructed to call ICP if intake/output less than required. Reviewed regular medications mother is taking. Information provided per [place]. Reviewed community resources on the [employer] website and in the Mom/Baby guide. Information on outpatient services provided. Mother has no further questions at this time.
[2021-01-30 08:45] VITALS: BP 127/79; PULSE 72; RESP 20; TEMP 36.4; O2SAT 100
--- NOTE | 2021-02-01 07:58 | PM.OBDSVD ---
DS: Admitting Diagnosis Admitting Diagnosis IUP 37 weeks, placenta previa DS: Discharge Diagnosis Discharge Diagnosis (1) Placenta previa: Code(s): O44.00 - Complete placenta previa NOS or without hemorrhage, unspecified trimester Status: Acute (2) deliv NOS-unsp: Status: Acute OB - DS: Summary OB Procedures : Ultrasound OB Procedures Intrapartum: OB Procedures: : None Peripartum Data Infant Delivery Method: Section Procedures: Procedures Operation Date: 01/25/21 07:30 Actual Procedure Side Surgeon p Repeat Section Maxine Monreal MD complications: none Status at Discharge Functional status at discharge: independent ambulation Time Spent with Patient Time attestation: Total time spent providing and/or coordinating discharge services: DS: Data Data Completed and Pending Completed studies during hospitalization: Pending at discharge 01/25/21 08:08 Surgical [PTH] Routine Discharge Plan Discharge Attending physician on discharge: Maxine Monreal Consulting providers: Danisha Joy ; Melvin Aguilar Discharging Clinician: Danisha Joy Patient Disposition: Home, Self-Care Activity: no driving and pelvic rest Diet: as tolerated Discharge Instructions: Education: Mom and Baby Guide Given to: Mother Follow-Up: Call your delivering provider's office for an appointment to be seen in: 1 Week Mom [facility] the follow-up appointment. Appointment Date/Time:Saturday, January 30, 2021 at 9:00 am Call [phone] if you are unable to keep your appointment time. BREAST CARE: * Wear a snug supportive bra. * For engorgement discomfort: Breast Feeding: * Apply warm moist washcloths * Express milk as needed to relieve engorgement * Wear loose clothing Bottle Feeding: * May apply ice packs * For sore nipples: * Identify correct latch-on * Apply warm moist washcloths before and after nursing * Air dry nipples after nursing * May apply Lansinoh cream to nipples ABDOMINAL INCISION: (if applicable) * Allow incision to air dry * Do NOT use lotions for powders on your incision * When showering, allow soap and water to run over the incision, but do not wash incision EPISIOTOMY/PERINEAL CARE: * Until bleeding stops, use your jose a bottle after urinating * Change your pad frequently throughout the day * You may take sitz baths several times a day (fill your bathtub with warm water and soak for 20 minutes.) Do NOT bathe in the water * No tub baths until seen by your physician - You may shower ACTIVITY: * Rest as much as possible. * Do not exercise or lift anything heavier than your baby (such as laundry or other children.) * Avoid stairs or driving as much as possible. * Do not put anything into the vagina. No douching, tampons, or sexual activity until seen by physician. NOTIFY PHYSICIAN IF YOU HAVE ANY QUESTIONS OR IF ANY OF THE FOLLOWING SYMPTOMS OCCUR: * If your episiotomy or incision becomes red, swollen, or more painful than what you have experienced in the hospital. * If your vaginal bleeding becomes foul smelling. * If your vaginal bleeding becomes more heavy than a period or if your bleeding changes from pink to bright red. However, you may pass an occasional walnut-sized clot once or twice for the first week . * If you experience a sharp, shooting pain in you calves. * If you discover a hard, reddened area on your breast or if you experience flu-like symptoms. DIET: * Eat regular, well-balanced meals. * Drink plenty of fluids daily. If , drink to thirst. Patient Instructions: Antibiotic Form Follow-up/Referrals: Maxine Monreal MD [Physician] - Discharge Medications: New docusate sodium 100 mg Caps
== END 2021-01-28 11:20 | disposition home or self-care (01) | DRG 788 ==
LOC: ANHLDR 05:23 → ANHOB2 11:16
PROVIDERS: Admitting Provider Obstetrics & Gynecology; Visit Provider Obstetrics & Gynecology
PROC: 10D00Z1 Extraction of Products of Conception, Low, Open Approach (ICD-10-PCS; CPT 59514; principal; 2021-01-25 07:30)
DX: O44.13 Complete placenta previa with hemorrhage, third trimester (principal); Z37.0 Single live birth; Z3A.37 37 weeks gestation of pregnancy; O36.63X0 Maternal care for excessive fetal growth, third trimester, not applicable or unspecified; O99.892 Other specified diseases and conditions complicating childbirth; M41.9 Scoliosis, unspecified
CPT/HCPCS: 36415; 85025; 86592; 86850; 86900; 86901; 88307; A9270; J0131; J1885; J2274; J2370; J2405; J2590; J7120

== ENCOUNTER 2021-12-06 19:09 | Emergency (ER) | payer OTHER, SELFPAY ==
[2021-12-06 19:21] VITALS: BP 129/93; PULSE 68; RESP 18; TEMP 37; O2SAT 100
--- NOTE | 2021-12-06 19:42 | ED.URI ---
HPI - URI/Sore Throat General Chief Complaint: Upper Respiratory Infection Stated Complaint: ear pressure and sore throat Time Seen by Provider: 12/06/21 19:30 Source: patient Mode of arrival: ambulatory Limitations: no limitations History of Present Illness HPI Narrative: Ms. Mcdonnell is a 35-year-old female patient presenting to the clinic today with complaints of bilateral ear pain and sore throat x2 weeks. She reports that she has had a lot of congestion that has gradually gotten better however she is still having sore throat and bilateral ear pain. She denies any fever or chills. She denies any known exposure to anybody with COVID, flu, or strep. MD elicited complaint: sore throat and nasal congestion Related Data Home Medications Medication Instructions Recorded Confirmed Antihistamine Eye Drops 12/06/21 cetirizine 10 mg capsule (Zyrtec) mg 12/06/21 fluticasone propionate 50 intranasal 12/06/21 mcg/actuation nasal spray,suspension pseudoephedrine HCl 30 mg tablet mg 12/06/21 (Sudafed) Allergies Allergy/AdvReac Type Severity Reaction Status Date / Time No Known Allergies Allergy Unknown Verified 01/07/21 15:43 Review of Systems Review of Systems: Pertinent positives per HPI. Patient denies any fever, chills, rash, headache, visual changes, dizziness, cough, runny nose, shortness of breath, chest pain, palpitations, nausea, vomiting, diarrhea, constipation, abdominal pain, or any urinary issues. [facility] Past Medical History Medical History 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 Family History Family History Grandparent Heart disease Heart attack Social History Social History Smoking status: Former smoker Smoking end date: 06/15/14 Substance use: never Last use: CLEAN FOR 6 YEARS Gender identity (if verbalized by the patient): Female Spiritual care concerns: No Comments At the time of my signature, I reviewed and agree with the nursing past medical, surgical, social, and family history. There is no relevant family history pertinent to the patient complaint. Exam Narrative: General: Well-developed, well nourished, in no apparent distress Head: Normocephalic, atraumatic Eyes: Pupils equally round and reactive to light bilaterally, EOM intact, sclera and conjunctive clear, no discharge, lids normal Ears: TMs intact, dull, and bulging, ear canals clear, no drainage, grossly hearing normal. Nose: Nares patent, no discharge, no inflammation, no sinus tenderness. Mouth: Oropharynx without lesions or masses, good dentition, MMM. Oropharynx mildly red, tenderness over the eustachian tubes Neck: Supple, trachea midline, no enlargement of anterior or posterior cervical nodes, no thyroid masses or goiter palpable. Cardio: Regular rate and rhythm, s1 and s2 normal, no murmur appreciated. Resp: Clear to auscultation bilaterally anteriorly and posteriorly, no rhonchi, rales, wheezing or rubs Course Course Emergency Course: Portions of this record may have been created with voice recognition software. Level of Care: Express Care Visit Vital Signs Vital signs: Vital Signs Temperature 37.0 C 12/06/21 19:21 Pulse Rate 68 12/06/21 19:21 Respiratory Rate 18 12/06/21 19:21 Blood Pressure 129/93 H 12/06/21 19:21 Pulse Oximetry 100 12/06/21 19:21 Oxygen Delivery Room Air 12/06/21 19:21 Temperature 37.0 C 12/06/21 19:21 Pulse Rate 68 12/06/21 19:21 Respiratory Rate 18 12/06/21 19:21 Blood Pressure 129/93 H 12/06/21 19:21 Pulse Oximetry 100 12/06/21 19:21 Oxygen Delivery Room Air 12/06/21 19:21 Vital signs reviewed MDM - URI/Sore Throat MDM Narrative Medical decision making narrative: At the time of visit patient is resting comfortably on the exam table. I s
== END 2021-12-06 19:50 | disposition home or self-care (01) ==
PROVIDERS: Emergency Provider Nurse Practitioner Family; PCP Hospitalist
DX: H69.93 Unspecified Eustachian tube disorder, bilateral (principal); Z87.891 Personal history of nicotine dependence; M41.9 Scoliosis, unspecified
CPT/HCPCS: 99213; G0463

== ENCOUNTER 2022-02-20 08:33 | Emergency (ER) | payer OTHER, SELFPAY ==
--- NOTE | ~2022-02-20 | XR_ITS ---
EXAMINATION: XR wrist RT min 3V DATE: 02/20/2022 08:58 INDICATION: Right wrist pain. TECHNIQUE: 4 views of right wrist were obtained. COMPARISON: None. FINDINGS: Bone alignment is normal. No fracture. Joint spaces are well maintained. IMPRESSION: 1. Normal right wrist. Reviewed, dictated and finalized at location A. IMPRESSION: 1. Normal right wrist.
[2022-02-20 08:39] VITALS: BP 137/77; PULSE 71; RESP 18; TEMP 36.7; O2SAT 99
--- NOTE | 2022-02-20 08:49 | ED.GENADULT ---
HPI - General Adult General Chief complaint: Extremity Problem,Nontraumatic Stated complaint: right wrist pain Time Seen by Provider: 02/20/22 08:48 Source: patient, RN notes reviewed and old records reviewed Mode of arrival: ambulatory Limitations: no limitations History of Present Illness HPI narrative: 36-year-old female who presents to [facility] with complaints of 2-week history of right wrist pain with increased symptoms for the past 2 to 3 days. Patient reports no known injury to her right wrist has palpable tenderness to mid dorsal aspect of wrist with increased pain with movement. Patient has some palpable tissue firmness to medial dorsal area of right wrist. Patient reports that she has been taking Tylenol for her discomfort. MD complaint: Right wrist pain Onset (ago): week(s) (2 increased symptoms 2-3 days) Location: upper extremity (Right wrist) Severity scale (1-10): 4 Quality: aching Treatments prior to arrival: other (Tylenol) Related Data Allergies Allergy/AdvReac Type Severity Reaction Status Date / Time No Known Allergies Allergy Unknown Verified 02/20/22 08:46 Review of Systems Review of Systems: CONSTITUTIONAL: Denies fever, chills, or sweats. EYES: Denies visual changes, redness, or discharge. ENT: Denies rhinorrhea, congestion, sore throat, or otalgia. CARDIOVASCULAR: Denies chest pain, palpitations, or edema. RESPIRATORY: Denies cough or dyspnea. GASTROINTESTINAL: Denies abdominal pain, nausea, vomiting, or diarrhea. GENITOURINARY: Denies dysuria or hematuria. SKIN: Denies rash or itching. MUSCULOSKELETAL: Denies back pain, positive for right wrist pain, or myalgia. NEUROLOGIC: Denies headache, numbness, or weakness. PSYCHIATRIC: Denies anxiety or depression. All systems reviewed & are unremarkable except as noted in HPI and below PMFSH Past Medical History Medical History (Updated 02/20/22 @ 09:23 by Cherry Carvajal NP) Diabetes in Ganglion cyst of dorsum of left wrist Scoliosis Surgical History Surgical History (Updated 02/20/22 @ 09:05 by Cherry Carvajal NP) History of lumbar fusion History of placement of ear tubes Previous section Family History Family History Grandparent Heart disease Heart attack Social History Social History (Updated 02/20/22 @ 09:04 by Cherry Carvajal NP) Smoking status: Former smoker Smoking end date: 06/15/14 Alcohol intake: former Substance use: former Last use: CLEAN FOR 7 YEARS Living arrangements: with family Gender identity (if verbalized by the patient): Female Spiritual care concerns: No Comments At time of signature, agree with nursing past medical, surgical, social and family history. There is no relevant family history pertinent to the presenting complaint Exam Narrative: GENERAL: Well-appearing, well-nourished, and in no acute distress. HEAD: Normocephalic, atraumatic. EYES: PERRLA and EOMI. ENT: Nares clear, no rhinorrhea or epistaxis. Mucous membranes moist. TM' normal with good light reflex, throat pink with no lesions or exudates, no tonsil swelling NECK: Supple. No lymphadenopathy CHEST: Clear to auscultation. No respiratory distress. SaO2 99% on room air HEART: Regular rate and rhythm. No murmur heard. Normal peripheral pulses. ABDOMEN: Soft, nontender, nondistended, normal active bowel sounds. EXTREMITIES: Normal range of motion. No edema.Exception noted to right dorsal wrist with palpable discomfort mid dorsal wrist area with pain with movement, strong right radial pulse hand and finger warm and pink. SKIN: Warm, dry, no rash. NEURO: No focal deficits. Alert and oriented x3. Course Course Level of Care: Express Care Visit Vital Signs Vital signs: Vital Signs Temperature 36.7 C 02/20/22 08:39 Pulse Rate 71 02/20/22 08:39 Respiratory Rate 18 02/20/22 08:39 Blood Pressure 137/77 02/20/22 08:39 Pulse Oxime
== END 2022-02-20 09:23 | disposition home or self-care (01) ==
PROVIDERS: Emergency Provider Registered Nurse; PCP Hospitalist
DX: M25.531 Pain in right wrist (principal); Z87.891 Personal history of nicotine dependence; M41.9 Scoliosis, unspecified
CPT/HCPCS: 73110; 99213; G0463